=== PATIENT | female | born 1935 | race Caucasian/White ===

== ENCOUNTER 2017-08-30 15:57 | Inpatient (IN) | payer MEDICARE, BC ==
[2017-08-30] MEDS: morphine 2 MG INJ IV (16:18)
[2017-08-30] MEDS: SOD CHLORIDE 0.9% 1,000 ML IV ×2 (16:18→22:58)
[2017-08-30] MEDS: ONDANSETRON 4 MG INJ IV (16:18)
[2017-08-30 16:34] LABS: ABNORMAL IP MESSAGE 1; HEMATOCRIT 18.7 % (37.0-47.0); MEAN CORPUSCULAR HEMOGLOBIN 28.3 pg (29.0-33.0); MEAN CORPUSCULAR VOLUME 91.2 fl (82.0-101.0); MEAN PLATELET VOLUME 9.6 fl (7.4-10.4); PLATELET COUNT 411 10^3/UL (140-415); RED BLOOD COUNT 2.05 10^6/ul (4.20-5.40); RED CELL DISTRIBUTION WIDTH 15.2 % (11.5-14.5)
[2017-08-30 16:34] LABS: WHITE BLOOD COUNT 10.8 10^3/ul (4.8-10.8)
[2017-08-30 16:38] LABS: INR 1.09; PROTIME 14.2 Sec (11.9-14.9); PT RATIO 1.1
[2017-08-30 16:39] LABS: PARTIAL THROMBOPLASTIN TIME 36.6 Sec (25.0-35.0)
[2017-08-30 16:45] LABS: ALANINE AMINOTRANSFERASE 20 IU/L (13-69); ALBUMIN 3.3 g/dl (3.3-4.9); ALKALINE PHOSPHATASE 92 IU/L (42-121); ANION GAP 18 (8-16); ASPARTATE AMINO TRANSFERASE 25 IU/L (15-46); BLOOD UREA NITROGEN 49 mg/dl (7-20); CARBON DIOXIDE 23 mmol/L (21-31); CHLORIDE 105 mmol/L (97-110); CREATININE 1.29 mg/dl (0.44-1.00); GLUCOSE 161 mg/dl (70-220); LIPASE 87 U/L (23-300); POTASSIUM 4.5 mmol/L (3.5-5.1); SODIUM 141 mmol/L (135-144); TOTAL PROTEIN 6.3 g/dl (6.1-8.1)
[2017-08-30 16:55] LABS: LACTIC ACID 2.7 mmol/L (0.5-2.0)
[2017-08-30 17:01] LABS: HEMOGLOBIN 5.8 g/dl (12.0-16.0); POSITIVE DIFF @See below
[2017-08-30 17:02] LABS: ADD MAN DIFF? YES
[2017-08-30 17:03] LABS: PATH REVIEW? YES
[2017-08-30 17:06] LABS: TROPONIN-I < 0.012 ng/ml (0.00-0.12)
[2017-08-30 17:29] LABS: RETICULOCYTE RBC 2.05
[2017-08-30 17:29] LABS: RETICULOCYTE COUNT # 0.044 X10^6 (0.020-0.110); RETICULOCYTE COUNT % 2.1 % (0.5-1.5)
[2017-08-30 17:49] LABS: IRON 39 ug/dl (35-150)
[2017-08-30] MEDS: FAMOTIDINE 20 MG INJ IV (17:51)
[2017-08-30 17:58] LABS: % IRON SATURATION 22 % SAT (22-52); TOTAL IRON BINDING CAPACITY 176 ug/dl (241-421)
[2017-08-30 18:03] LABS: ANISOCYTOSIS 1+ (0-0); EOSINOPHILS % (M) 3 % (0-7); HYPOCHROMASIA 1+ (0-0); LYMPHOCYTES #M 1.7 10^3/ul (0.8-2.9); LYMPHOCYTES % (M) 16 % (15-51); MICROCYTOSIS 1+ (0-0); MONOCYTE #M 0.2 10^3/ul (0.3-0.9); MONOCYTES % (M) 2 % (0-11); PLATELET ESTIMATE NORMAL; RBC MORPHOLOGY COMMENT @See below; SEGMENTED NEUTROPHILS (M) % 79 % (39-77); SMUDGE%M 1 % (0-0); WBC MORPHOLOGY COMMENT @See below
[2017-08-30] MEDS: PANTOPRAZOLE 40 MG INJ IV (18:27)
[2017-08-30] MEDS ORDERED: ONDANSETRON 4 MG INJ IV (19:30)
[2017-08-30] MEDS ORDERED: NACL 0.9% 3 ML SYG IV (19:30)
[2017-08-30] MEDS ORDERED: morphine 2 MG INJ IV (19:30)
[2017-08-30] MEDS ORDERED: ACETAMINOPHEN 325 MG TAB PO ×3 (19:30)
[2017-08-30 20:08] LABS: ADD UMIC YES; UR ASCORBIC ACID NEGATIVE (NEGATIVE); UR BILIRUBIN (Dip) NEGATIVE (NEGATIVE); UR BLOOD (Dip) 1+ mg/dL (NEGATIVE); UR CLARITY SLIGHTLY CLOUDY (CLEAR); UR COLOR YELLOW (YELLOW); UR GLUCOSE (Dip) NEGATIVE (NEGATIVE); UR KETONES (Dip) NEGATIVE (NEGATIVE); UR LEUKOCYTE ESTERASE (Dip) 2+ Leu/ul (NEGATIVE); UR NITRITE (Dip) NEGATIVE (NEGATIVE); UR RBC 0 /HPF (0-5); UR TOTAL PROTEIN (Dip) NEGATIVE (NEGATIVE); UR UROBILINOGEN (Dip) NEGATIVE (NEGATIVE); UR WBC 3 /HPF (0-5)
[2017-08-30] MEDS: NYSTATIN 15 GM CR TOP (22:17)
[2017-08-31] MEDS: DEXTROSE 5%-0.45% NACL 1,000 ML IV ×3 (00:03→22:03)
[2017-08-31] MEDS: SOD CHLORIDE 0.9% 250 ML IV ×2 (01:32→11:00)
[2017-08-31] MEDS: CEFEPIME 1GM/50 ML (PMX) 50 ML IVPB ×3 (01:32→22:03)
[2017-08-31] MEDS: PANTOPRAZOLE 40 MG INJ IV ×2 (05:36→22:03)
[2017-08-31 06:58] LABS: ADD MAN DIFF? NO
[2017-08-31 07:07] LABS: WHITE BLOOD COUNT 8.5 10^3/ul (4.8-10.8)
[2017-08-31 07:07] LABS: ABNORMAL IP MESSAGE 1; BASOPHILS % 0.2 % (0.0-2.0); EOSINOPHILS # 0.1 10^3/ul (0.0-0.5); EOSINOPHILS % 1.3 % (0.0-7.0); HEMATOCRIT 20.7 % (37.0-47.0); LYMPHOCYTES # 0.7 10^3/ul (0.8-2.9); LYMPHOCYTES % 7.8 % (15.0-51.0); MEAN CORPUSCULAR HEMOGLOBIN 29.1 pg (29.0-33.0); MEAN CORPUSCULAR HGB CONC 32.9 g/dl (32.0-37.0); MEAN CORPUSCULAR VOLUME 88.5 fl (82.0-101.0); MEAN PLATELET VOLUME 9.4 fl (7.4-10.4); MONOCYTE # 0.4 10^3/ul (0.3-0.9); MONOCYTES % 4.6 % (0.0-11.0); NEUTROPHIL # 7.3 10^3/ul (1.6-7.5); NEUTROPHILS % 85.6 % (39.0-77.0); PLATELET COUNT 257 10^3/UL (140-415); RED BLOOD COUNT 2.34 10^6/ul (4.20-5.40); RED CELL DISTRIBUTION WIDTH 15.9 % (11.5-14.5)
[2017-08-31 07:11] LABS: HEMOGLOBIN 6.8 g/dl (12.0-16.0); POSITIVE DIFF @See below
[2017-08-31 07:21] LABS: HEMOGLOBIN A1C 5.8 % (0-5.9)
[2017-08-31 07:29] LABS: ALANINE AMINOTRANSFERASE 25 IU/L (13-69); ALBUMIN 2.6 g/dl (3.3-4.9); ALBUMIN/GLOBULIN RATIO 0.86; ALKALINE PHOSPHATASE 63 IU/L (42-121); ANION GAP 9 (8-16); ASPARTATE AMINO TRANSFERASE 13 IU/L (15-46); BILIRUBIN,INDIRECT 0.5 mg/dl (0-1.1); BILIRUBIN,TOTAL 0.5 mg/dl (0.2-1.3); BLOOD UREA NITROGEN 41 mg/dl (7-20); CALCIUM 8.4 mg/dl (8.4-10.2); CARBON DIOXIDE 25 mmol/L (21-31); CHLORIDE 111 mmol/L (97-110); CREATININE 0.88 mg/dl (0.44-1.00); GLUCOSE 101 mg/dl (70-220); MAGNESIUM 2.1 mg/dl (1.7-2.5); POTASSIUM 4.9 mmol/L (3.5-5.1); SODIUM 140 mmol/L (135-144); TOTAL PROTEIN 5.6 g/dl (6.1-8.1)
[2017-08-31] MEDS: LEVOTHYROXINE 125 MCG TAB PO (08:32)
[2017-08-31] MEDS: LORAZEPAM 2 MG INJ IV (08:32)
[2017-08-31 09:53] LABS: TRANSFERRIN 115 mg/dL (188-341)
[2017-08-31 10:33] LABS: IMMEDIATE SPIN CROSSMATCH 1 5
[2017-08-31 19:31] LABS: ADD MAN DIFF? NO
[2017-08-31 19:34] LABS: WHITE BLOOD COUNT 6.2 10^3/ul (4.8-10.8)
[2017-08-31 19:34] LABS: BASOPHILS % 0.3 % (0.0-2.0); EOSINOPHILS # 0.5 10^3/ul (0.0-0.5); EOSINOPHILS % 7.9 % (0.0-7.0); LYMPHOCYTES # 0.9 10^3/ul (0.8-2.9); LYMPHOCYTES % 14.3 % (15.0-51.0); MEAN CORPUSCULAR HEMOGLOBIN 28.8 pg (29.0-33.0); MEAN CORPUSCULAR HGB CONC 33.3 g/dl (32.0-37.0); MEAN CORPUSCULAR VOLUME 86.3 fl (82.0-101.0); MEAN PLATELET VOLUME 9.3 fl (7.4-10.4); MONOCYTE # 0.4 10^3/ul (0.3-0.9); MONOCYTES % 5.6 % (0.0-11.0); NEUTROPHIL # 4.4 10^3/ul (1.6-7.5); NEUTROPHILS % 71.4 % (39.0-77.0); PLATELET COUNT 225 10^3/UL (140-415); RED BLOOD COUNT 2.78 10^6/ul (4.20-5.40); RED CELL DISTRIBUTION WIDTH 16.9 % (11.5-14.5)
[2017-08-31 19:51] LABS: LACTIC ACID 0.9 mmol/L (0.5-2.0)
[2017-09-01] MEDS: LEVOTHYROXINE 125 MCG TAB PO (06:47)
[2017-09-01 07:11] LABS: ADD MAN DIFF? NO
[2017-09-01 07:18] LABS: WHITE BLOOD COUNT 5.9 10^3/ul (4.8-10.8)
[2017-09-01 07:18] LABS: BASOPHILS % 0.5 % (0.0-2.0); EOSINOPHILS # 0.8 10^3/ul (0.0-0.5); HEMOGLOBIN 8.4 g/dl (12.0-16.0); LYMPHOCYTES # 0.7 10^3/ul (0.8-2.9); LYMPHOCYTES % 12.5 % (15.0-51.0); MEAN CORPUSCULAR HGB CONC 33.6 g/dl (32.0-37.0); MEAN CORPUSCULAR VOLUME 86.2 fl (82.0-101.0); MEAN PLATELET VOLUME 9.6 fl (7.4-10.4); MONOCYTE # 0.4 10^3/ul (0.3-0.9); MONOCYTES % 6.1 % (0.0-11.0); NEUTROPHILS % 66.6 % (39.0-77.0); PLATELET COUNT 241 10^3/UL (140-415); RED CELL DISTRIBUTION WIDTH 17.2 % (11.5-14.5)
[2017-09-01 07:39] LABS: ALANINE AMINOTRANSFERASE 23 IU/L (13-69); ALBUMIN 2.7 g/dl (3.3-4.9); ALBUMIN/GLOBULIN RATIO 0.96; ALKALINE PHOSPHATASE 68 IU/L (42-121); ANION GAP 10 (8-16); ASPARTATE AMINO TRANSFERASE 13 IU/L (15-46); BILIRUBIN,INDIRECT 0.3 mg/dl (0-1.1); BILIRUBIN,TOTAL 0.3 mg/dl (0.2-1.3); BLOOD UREA NITROGEN 21 mg/dl (7-20); CALCIUM 8.3 mg/dl (8.4-10.2); CARBON DIOXIDE 27 mmol/L (21-31); CHLORIDE 110 mmol/L (97-110); CREATININE 0.63 mg/dl (0.44-1.00); GLUCOSE 88 mg/dl (70-220); POTASSIUM 4.2 mmol/L (3.5-5.1); SODIUM 143 mmol/L (135-144); TOTAL PROTEIN 5.5 g/dl (6.1-8.1)
[2017-09-01 08:27] LABS: PHOSPHORUS 2.4 mg/dl (2.5-4.9)
[2017-09-01 08:27] LABS: MAGNESIUM 2.2 mg/dl (1.7-2.5)
[2017-09-01] MEDS: CEFEPIME 1GM/50 ML (PMX) 50 ML IVPB ×2 (09:00→22:23)
[2017-09-01] MEDS: PANTOPRAZOLE 40 MG INJ IV ×2 (09:27→22:23)
[2017-09-01] MEDS: DEXTROSE 5%-0.45% NACL 1,000 ML IV (16:59)
[2017-09-02] MEDS: LEVOTHYROXINE 125 MCG TAB PO (05:59)
[2017-09-02 07:20] LABS: ADD MAN DIFF? NO
[2017-09-02 07:28] LABS: BASOPHILS % 0.6 % (0.0-2.0); EOSINOPHILS # 0.2 10^3/ul (0.0-0.5); EOSINOPHILS % 2.1 % (0.0-7.0); HEMATOCRIT 22.9 % (37.0-47.0); HEMOGLOBIN 7.5 g/dl (12.0-16.0); LYMPHOCYTES # 0.9 10^3/ul (0.8-2.9); LYMPHOCYTES % 12.8 % (15.0-51.0); MEAN CORPUSCULAR HEMOGLOBIN 28.7 pg (29.0-33.0); MEAN CORPUSCULAR HGB CONC 32.8 g/dl (32.0-37.0); MEAN CORPUSCULAR VOLUME 87.7 fl (82.0-101.0); MEAN PLATELET VOLUME 9.9 fl (7.4-10.4); MONOCYTE # 0.4 10^3/ul (0.3-0.9); MONOCYTES % 5.9 % (0.0-11.0); NEUTROPHIL # 5.5 10^3/ul (1.6-7.5); NEUTROPHILS % 78.3 % (39.0-77.0); PLATELET COUNT 250 10^3/UL (140-415); RED BLOOD COUNT 2.61 10^6/ul (4.20-5.40); RED CELL DISTRIBUTION WIDTH 16.3 % (11.5-14.5)
[2017-09-02] MEDS: DEXTROSE 5%-0.45% NACL 1,000 ML IV ×2 (07:39→13:47)
[2017-09-02 07:52] LABS: ANION GAP 9 (8-16); BLOOD UREA NITROGEN 34 mg/dl (7-20); CALCIUM 8.1 mg/dl (8.4-10.2); CARBON DIOXIDE 27 mmol/L (21-31); CHLORIDE 112 mmol/L (97-110); CREATININE 0.63 mg/dl (0.44-1.00); GLUCOSE 96 mg/dl (70-220); POTASSIUM 4.1 mmol/L (3.5-5.1); SODIUM 144 mmol/L (135-144)
[2017-09-02 08:05] LABS: PHOSPHORUS 2.1 mg/dl (2.5-4.9)
[2017-09-02] MEDS: CEFEPIME 1GM/50 ML (PMX) 50 ML IVPB ×2 (08:38→23:40)
[2017-09-02] MEDS: PANTOPRAZOLE 40 MG INJ IV ×2 (08:39→23:40)
[2017-09-02 18:17] LABS: IMMEDIATE SPIN CROSSMATCH 1 2
[2017-09-03] MEDS: LEVOTHYROXINE 125 MCG TAB PO (05:58)
[2017-09-03] MEDS: PANTOPRAZOLE 40 MG INJ IV ×2 (07:58→20:22)
[2017-09-03] MEDS: CEFEPIME 1GM/50 ML (PMX) 50 ML IVPB ×2 (07:58→20:26)
[2017-09-03 11:09] LABS: ADD MAN DIFF? NO
[2017-09-03 11:18] LABS: WHITE BLOOD COUNT 5.2 10^3/ul (4.8-10.8)
[2017-09-03 11:18] LABS: BASOPHILS % 0.6 % (0.0-2.0); EOSINOPHILS # 0.2 10^3/ul (0.0-0.5); EOSINOPHILS % 4.1 % (0.0-7.0); HEMATOCRIT 26.9 % (37.0-47.0); LYMPHOCYTES # 0.8 10^3/ul (0.8-2.9); LYMPHOCYTES % 14.7 % (15.0-51.0); MEAN CORPUSCULAR HEMOGLOBIN 28.4 pg (29.0-33.0); MEAN CORPUSCULAR HGB CONC 33.5 g/dl (32.0-37.0); MEAN CORPUSCULAR VOLUME 84.9 fl (82.0-101.0); MEAN PLATELET VOLUME 9.6 fl (7.4-10.4); MONOCYTE # 0.3 10^3/ul (0.3-0.9); MONOCYTES % 5.8 % (0.0-11.0); NEUTROPHIL # 3.8 10^3/ul (1.6-7.5); NEUTROPHILS % 74.4 % (39.0-77.0); NUCLEATED RED BLOOD CELLS% 0.6 /100WBC (0.0-0.0); PLATELET COUNT 212 10^3/UL (140-415); RED BLOOD COUNT 3.17 10^6/ul (4.20-5.40); RED CELL DISTRIBUTION WIDTH 15.2 % (11.5-14.5)
[2017-09-03 11:29] LABS: MAGNESIUM 1.9 mg/dl (1.7-2.5)
[2017-09-03 11:29] LABS: PHOSPHORUS 2.1 mg/dl (2.5-4.9)
[2017-09-03] MEDS: DEXTROSE 5%-0.45% NACL 1,000 ML IV (12:15)
[2017-09-03] MEDS: SUCRALFATE 1 GM TAB PO ×3 (12:23→20:22)
[2017-09-03 12:27] LABS: BLOOD UREA NITROGEN 13 mg/dl (7-20); CALCIUM 8.3 mg/dl (8.4-10.2); CARBON DIOXIDE 25 mmol/L (21-31); CHLORIDE 112 mmol/L (97-110); CREATININE 0.56 mg/dl (0.44-1.00); GLUCOSE 106 mg/dl (70-220); SODIUM 141 mmol/L (135-144)
[2017-09-03 12:28] LABS: ANION GAP 7 (8-16); POTASSIUM 3.3 mmol/L (3.5-5.1)
[2017-09-03] MEDS: POTASSIUM PHOSPHATE 20 MEQ in SOD CHLORIDE 0.9% 250 ML IVPB (18:22)
[2017-09-04] MEDS: LEVOTHYROXINE 125 MCG TAB PO (06:27)
[2017-09-04 07:40] LABS: ADD MAN DIFF? NO
[2017-09-04 07:44] LABS: WHITE BLOOD COUNT 5.7 10^3/ul (4.8-10.8)
[2017-09-04 07:44] LABS: BASOPHILS % 0.7 % (0.0-2.0); EOSINOPHILS # 0.3 10^3/ul (0.0-0.5); EOSINOPHILS % 5.5 % (0.0-7.0); HEMATOCRIT 28.9 % (37.0-47.0); HEMOGLOBIN 9.6 g/dl (12.0-16.0); LYMPHOCYTES # 0.8 10^3/ul (0.8-2.9); LYMPHOCYTES % 14.1 % (15.0-51.0); MEAN CORPUSCULAR HEMOGLOBIN 28.7 pg (29.0-33.0); MEAN CORPUSCULAR HGB CONC 33.2 g/dl (32.0-37.0); MEAN CORPUSCULAR VOLUME 86.3 fl (82.0-101.0); MEAN PLATELET VOLUME 9.3 fl (7.4-10.4); MONOCYTE # 0.3 10^3/ul (0.3-0.9); MONOCYTES % 5.6 % (0.0-11.0); NEUTROPHIL # 4.2 10^3/ul (1.6-7.5); NEUTROPHILS % 73.7 % (39.0-77.0); PLATELET COUNT 228 10^3/UL (140-415); RED BLOOD COUNT 3.35 10^6/ul (4.20-5.40); RED CELL DISTRIBUTION WIDTH 15.1 % (11.5-14.5)
[2017-09-04 08:02] LABS: ANION GAP 8 (8-16); BLOOD UREA NITROGEN 10 mg/dl (7-20); CALCIUM 8.1 mg/dl (8.4-10.2); CARBON DIOXIDE 27 mmol/L (21-31); CHLORIDE 110 mmol/L (97-110); CREATININE 0.55 mg/dl (0.44-1.00); GLUCOSE 94 mg/dl (70-220); POTASSIUM 3.2 mmol/L (3.5-5.1); SODIUM 142 mmol/L (135-144)
[2017-09-04 08:04] LABS: MAGNESIUM 1.8 mg/dl (1.7-2.5)
[2017-09-04 08:04] LABS: PHOSPHORUS 2.3 mg/dl (2.5-4.9)
[2017-09-04] MEDS: PANTOPRAZOLE 40 MG INJ IV ×2 (08:55→21:48)
[2017-09-04] MEDS: SUCRALFATE 1 GM TAB PO ×4 (08:55→21:48)
[2017-09-04] MEDS: CEFEPIME 1GM/50 ML (PMX) 50 ML IVPB ×2 (08:55→21:48)
[2017-09-04] MEDS: POTASSIUM CHLORIDE (SR) 20 MEQ TAB PO (21:48)
[2017-09-04] MEDS: POTASSIUM PHOSPHATE 20 MEQ in SOD CHLORIDE 0.9% 250 ML IVPB (22:01)
[2017-09-05] MEDS: LEVOTHYROXINE 125 MCG TAB PO (06:02)
[2017-09-05 07:41] LABS: ADD MAN DIFF? NO
[2017-09-05 07:44] LABS: BASOPHILS % 0.7 % (0.0-2.0); EOSINOPHILS # 0.5 10^3/ul (0.0-0.5); EOSINOPHILS % 9.2 % (0.0-7.0); HEMATOCRIT 26.4 % (37.0-47.0); HEMOGLOBIN 8.8 g/dl (12.0-16.0); LYMPHOCYTES # 0.7 10^3/ul (0.8-2.9); LYMPHOCYTES % 12.5 % (15.0-51.0); MEAN CORPUSCULAR HEMOGLOBIN 29.2 pg (29.0-33.0); MEAN CORPUSCULAR HGB CONC 33.3 g/dl (32.0-37.0); MEAN CORPUSCULAR VOLUME 87.7 fl (82.0-101.0); MEAN PLATELET VOLUME 9.7 fl (7.4-10.4); MONOCYTE # 0.4 10^3/ul (0.3-0.9); MONOCYTES % 6.5 % (0.0-11.0); NEUTROPHIL # 4.1 10^3/ul (1.6-7.5); NEUTROPHILS % 70.6 % (39.0-77.0); PLATELET COUNT 212 10^3/UL (140-415); RED BLOOD COUNT 3.01 10^6/ul (4.20-5.40); RED CELL DISTRIBUTION WIDTH 15.3 % (11.5-14.5)
[2017-09-05 07:44] LABS: WHITE BLOOD COUNT 5.8 10^3/ul (4.8-10.8)
[2017-09-05 08:14] LABS: MAGNESIUM 1.7 mg/dl (1.7-2.5)
[2017-09-05 08:14] LABS: PHOSPHORUS 3.1 mg/dl (2.5-4.9)
[2017-09-05 08:27] LABS: ANION GAP 8 (8-16); BLOOD UREA NITROGEN 8 mg/dl (7-20); CALCIUM 8.2 mg/dl (8.4-10.2); CARBON DIOXIDE 26 mmol/L (21-31); CHLORIDE 110 mmol/L (97-110); GLUCOSE 98 mg/dl (70-220); POTASSIUM 3.7 mmol/L (3.5-5.1); SODIUM 140 mmol/L (135-144)
[2017-09-05] MEDS: PANTOPRAZOLE 40 MG INJ IV ×2 (08:53→20:53)
[2017-09-05] MEDS: SUCRALFATE 1 GM TAB PO ×4 (08:53→20:53)
[2017-09-05] MEDS: CEFEPIME 1GM/50 ML (PMX) 50 ML IVPB (08:53)
[2017-09-05] MEDS: FERROUS SULFATE (EC) 325 MG TAB PO (20:53)
[2017-09-06] MEDS: LEVOTHYROXINE 125 MCG TAB PO (06:31)
[2017-09-06 08:30] LABS: ADD MAN DIFF? NO
[2017-09-06 08:41] LABS: WHITE BLOOD COUNT 5.1 10^3/ul (4.8-10.8)
[2017-09-06 08:41] LABS: BASOPHILS % 0.8 % (0.0-2.0); EOSINOPHILS # 0.6 10^3/ul (0.0-0.5); EOSINOPHILS % 12.3 % (0.0-7.0); HEMATOCRIT 25.3 % (37.0-47.0); HEMOGLOBIN 8.4 g/dl (12.0-16.0); LYMPHOCYTES # 0.9 10^3/ul (0.8-2.9); LYMPHOCYTES % 17.6 % (15.0-51.0); MEAN CORPUSCULAR HEMOGLOBIN 28.9 pg (29.0-33.0); MEAN CORPUSCULAR HGB CONC 33.2 g/dl (32.0-37.0); MEAN CORPUSCULAR VOLUME 86.9 fl (82.0-101.0); MEAN PLATELET VOLUME 9.7 fl (7.4-10.4); MONOCYTE # 0.4 10^3/ul (0.3-0.9); MONOCYTES % 7.6 % (0.0-11.0); NEUTROPHIL # 3.1 10^3/ul (1.6-7.5); NEUTROPHILS % 61.3 % (39.0-77.0); PLATELET COUNT 218 10^3/UL (140-415); RED BLOOD COUNT 2.91 10^6/ul (4.20-5.40)
[2017-09-06 09:01] LABS: PHOSPHORUS 2.6 mg/dl (2.5-4.9)
[2017-09-06 09:01] LABS: MAGNESIUM 1.8 mg/dl (1.7-2.5)
[2017-09-06 09:02] LABS: ANION GAP 7 (8-16); BLOOD UREA NITROGEN 6 mg/dl (7-20); CALCIUM 8.3 mg/dl (8.4-10.2); CARBON DIOXIDE 28 mmol/L (21-31); CHLORIDE 108 mmol/L (97-110); GLUCOSE 88 mg/dl (70-220); POTASSIUM 4.1 mmol/L (3.5-5.1); SODIUM 139 mmol/L (135-144)
[2017-09-06] MEDS: SUCRALFATE 1 GM TAB PO ×4 (09:02→21:20)
[2017-09-06] MEDS: PANTOPRAZOLE 40 MG INJ IV ×2 (09:02→21:20)
[2017-09-06] MEDS: FERROUS SULFATE (EC) 325 MG TAB PO ×2 (09:02→21:20)
[2017-09-06] MEDS: ONDANSETRON 4 MG INJ IV (12:34)
[2017-09-07] MEDS: LEVOTHYROXINE 125 MCG TAB PO (06:01)
[2017-09-07 06:21] LABS: ADD MAN DIFF? NO
[2017-09-07 07:08] LABS: ANION GAP 8 (8-16); BLOOD UREA NITROGEN 6 mg/dl (7-20); CALCIUM 8.5 mg/dl (8.4-10.2); CARBON DIOXIDE 33 mmol/L (21-31); CHLORIDE 105 mmol/L (97-110); CREATININE 0.59 mg/dl (0.44-1.00); GLUCOSE 84 mg/dl (70-220); POTASSIUM 4.3 mmol/L (3.5-5.1); SODIUM 142 mmol/L (135-144)
[2017-09-07 07:09] LABS: MAGNESIUM 1.9 mg/dl (1.7-2.5)
[2017-09-07 07:20] LABS: WHITE BLOOD COUNT 4.9 10^3/ul (4.8-10.8)
[2017-09-07 07:20] LABS: BASOPHILS % 0.6 % (0.0-2.0); EOSINOPHILS # 0.6 10^3/ul (0.0-0.5); HEMATOCRIT 28.3 % (37.0-47.0); LYMPHOCYTES % 20.2 % (15.0-51.0); MEAN CORPUSCULAR HEMOGLOBIN 28.8 pg (29.0-33.0); MEAN CORPUSCULAR HGB CONC 31.8 g/dl (32.0-37.0); MEAN CORPUSCULAR VOLUME 90.7 fl (82.0-101.0); MEAN PLATELET VOLUME 9.9 fl (7.4-10.4); MONOCYTE # 0.4 10^3/ul (0.3-0.9); MONOCYTES % 8.8 % (0.0-11.0); NEUTROPHIL # 2.8 10^3/ul (1.6-7.5); NEUTROPHILS % 56.8 % (39.0-77.0); PLATELET COUNT 244 10^3/UL (140-415); RED BLOOD COUNT 3.12 10^6/ul (4.20-5.40); RED CELL DISTRIBUTION WIDTH 15.4 % (11.5-14.5)
[2017-09-07] MEDS: PANTOPRAZOLE 40 MG INJ IV (08:35)
[2017-09-07] MEDS: SUCRALFATE 1 GM TAB PO ×4 (08:35→20:46)
[2017-09-07] MEDS: FERROUS SULFATE (EC) 325 MG TAB PO ×2 (08:35→20:46)
[2017-09-07] MEDS: PANTOPRAZOLE (EC) 40 MG TAB PO (21:10)
[2017-09-08] MEDS: PANTOPRAZOLE (EC) 40 MG TAB PO ×2 (06:19→17:27)
[2017-09-08] MEDS: LEVOTHYROXINE 125 MCG TAB PO (06:19)
[2017-09-08] MEDS: FERROUS SULFATE (EC) 325 MG TAB PO (08:21)
[2017-09-08] MEDS: SUCRALFATE 1 GM TAB PO ×3 (08:21→17:27)
== END 2017-09-08 19:45 | DRG 378 ==
LOC: MS4 19:33 → PP2 09-06 19:56 → E/R 15:57
PROVIDERS: Internal Medicine
PROC: 0DJ08ZZ Inspection of Upper Intestinal Tract, Via Natural or Artificial Opening Endoscopic (ICD-10-PCS; principal; 2017-08-31 12:00)
PROC: 30233N1 Transfusion of Nonautologous Red Blood Cells into Peripheral Vein, Percutaneous Approach (ICD-10-PCS; 2017-08-31 12:00)
DX: K26.0 Acute duodenal ulcer with hemorrhage (principal); D62 Acute posthemorrhagic anemia; N17.9 Acute kidney failure, unspecified; L89.152 Pressure ulcer of sacral region, stage 2; N39.0 Urinary tract infection, site not specified; L89.301 Pressure ulcer of unspecified buttock, stage 1; F03.90 Unspecified dementia, unspecified severity, without behavioral disturbance, psychotic disturbance, mood disturbance, and anxiety; E88.09 Other disorders of plasma-protein metabolism, not elsewhere classified; E03.9 Hypothyroidism, unspecified; B96.29 Other Escherichia coli [E. coli] as the cause of diseases classified elsewhere; R55 Syncope and collapse; E87.6 Hypokalemia; E83.39 Other disorders of phosphorus metabolism
CPT/HCPCS: 36415; 36430; 71045; 74176; 80048; 80053; 81001; 82728; 82962; 83036; 83540; 83605; 83690; 83735; 84100; 84466; 84484; 85025; 85045; 85610; 85730; 86850; 86900; 86901; 86920; 87086; 93005; 96374; 96375; 96376; 97110; 97116; 97162; 97530; 99291-25